=== PATIENT | male | born 2000 | race African-American/Black ===

== ENCOUNTER 2020-08-06 13:29 | Emergency (ER) | payer SELFPAY ==
[~2020-08-06] VITALS: Ht 185.4 cm; Wt 74.8 kg
[2020-08-06 13:34] VITALS: BP 117/72
== END 2020-08-06 16:07 | disposition home or self-care (01) ==
LOC: ER 13:29
DX: J01.00 Acute maxillary sinusitis, unspecified (principal); B35.0 Tinea barbae and tinea capitis; F17.210 Nicotine dependence, cigarettes, uncomplicated

== ENCOUNTER 2022-03-16 12:26 | Emergency (ER) | payer SELFPAY ==
[~2022-03-16] VITALS: Ht 188 cm; Wt 71.4 kg
[2022-03-16] MEDS ORDERED: ACETAMINOPHEN 325 MG TAB PO ONE (14:00)
[2022-03-16] MEDS ORDERED: IBUP800T27 PO (16:01)
[2022-03-16 16:03] VITALS: BP 118/64
== END 2022-03-16 16:06 | disposition home or self-care (01) ==
LOC: ER 12:26
DX: G44.209 Tension-type headache, unspecified, not intractable (principal); F17.210 Nicotine dependence, cigarettes, uncomplicated; F12.10 Cannabis abuse, uncomplicated
CPT/HCPCS: 70450

== ENCOUNTER 2023-11-27 09:32 | Emergency (ER) | payer SELFPAY ==
[~2023-11-27] VITALS: Ht 188 cm; Wt 70.2 kg
[~2023-11-27 09:32] MED LIST: IBUP-1456 PO
[2023-11-27] MEDS: ACETAMINOPHEN 500 MG TAB PO ONE (10:04)
[2023-11-27] MEDS: cefTRIAXone SOD 1,000 MG VL IM ONE (10:04)
[2023-11-27 10:09] VITALS: BP 120/64; PULSE 80; RESP 19; TEMP 98.9; O2SAT 97
[2023-11-27] MEDS ORDERED: ACET-1304 PO (10:31)
[2023-11-27] MEDS ORDERED: AMOX875T3 PO (10:31)
== END 2023-11-27 10:42 | disposition home or self-care (01) ==
LOC: ER 09:32
DX: J02.9 Acute pharyngitis, unspecified (principal); H66.91 Otitis media, unspecified, right ear; F17.210 Nicotine dependence, cigarettes, uncomplicated; F12.90 Cannabis use, unspecified, uncomplicated; Z79.1 Long term (current) use of non-steroidal anti-inflammatories (NSAID); Z79.899 Other long term (current) drug therapy
CPT/HCPCS: 81002; 96372; 99283; J0696